=== PATIENT | female | born 1955 | race Caucasian/White ===

== ENCOUNTER 2019-05-14 13:05 | Emergency (ER) | payer OTHER, BC ==
[~2019-05-14] VITALS: Ht 157.5 cm; Wt 58.2 kg
[~2019-05-14 13:05] MED LIST: ASPI-611 PO; ATRNS; ENOX40SY7 SUBCUT; FAMO20TA44 PO; FLUT16SP26 BOTHNARES; LEVO5TAB13 PO; MULT-1085 PO; OASIS TEARS OP; OMEP20CA15 PO; SUCR1ORA2 PO; SUMA25TA35 PO
[2019-05-14 13:12] VITALS: BP 157/86
[2019-05-14] MEDS ORDERED: ondansetron 4mg rapidly disintigrating tab PO ONE (14:50)
[2019-05-14] MEDS ORDERED: morphine 2 MG/ML inj. syringe IM ONE (14:50)
[2019-05-14] MEDS ORDERED: HYDR-3965 PO (16:22)
== END 2019-05-14 17:00 | disposition home or self-care (01) ==
LOC: ER 13:06
DX: S32.10XA Unspecified fracture of sacrum, initial encounter for closed fracture (principal); S43.101A Unspecified dislocation of right acromioclavicular joint, initial encounter; Z98.890 Other specified postprocedural states; Z88.8 Allergy status to other drugs, medicaments and biological substances; Z79.82 Long term (current) use of aspirin; Z79.899 Other long term (current) drug therapy; W18.30XA Fall on same level, unspecified, initial encounter; Y93.89 Activity, other specified; Y92.89 Other specified places as the place of occurrence of the external cause; Y99.9 Unspecified external cause status
CPT/HCPCS: 71045; 72100; 72170; 73050; 96372; 99284; J2270

== ENCOUNTER 2019-06-28 12:52 | Emergency (ER) | payer OTHER, BC ==
[~2019-06-28] VITALS: Ht 157.5 cm; Wt 60.0 kg
[2019-06-28 12:53] VITALS: BP 183/93
[2019-06-28] MEDS ORDERED: AMOX-422 PO (13:50)
[2019-06-28] MEDS ORDERED: FLUC150T5 PO (13:51)
== END 2019-06-28 14:10 | disposition home or self-care (01) ==
LOC: ER 12:53
DX: S60.572A Other superficial bite of hand of left hand, initial encounter (principal); F41.9 Anxiety disorder, unspecified; Z88.8 Allergy status to other drugs, medicaments and biological substances; Z79.899 Other long term (current) drug therapy; Z79.82 Long term (current) use of aspirin; W54.0XXA Bitten by dog, initial encounter; Y93.89 Activity, other specified; Y92.89 Other specified places as the place of occurrence of the external cause; Y99.8 Other external cause status
CPT/HCPCS: 99283

== ENCOUNTER 2019-08-03 11:49 | Emergency (ER) | payer BC, OTHER ==
[~2019-08-03] VITALS: Ht 157.5 cm; Wt 60.0 kg
[~2019-08-03 11:49] MED LIST changes: +FLUC150T5 PO
[2019-08-03] MEDS ORDERED: LIDOcaine 5% patch TP SCH (12:35)
[2019-08-03] MEDS ORDERED: acetaminophen w/codeine (30MG) #3 tablet PO ONE (12:35)
[2019-08-03 13:10] VITALS: BP 116/94
[2019-08-03] MEDS ORDERED: LIDO700A32 TOP (13:20)
[2019-08-03] MEDS ORDERED: IBUP-1984 PO (13:20)
== END 2019-08-03 13:45 | disposition home or self-care (01) ==
LOC: ER 11:50
DX: S22.42XA Multiple fractures of ribs, left side, initial encounter for closed fracture (principal); G43.909 Migraine, unspecified, not intractable, without status migrainosus; F41.9 Anxiety disorder, unspecified; Z98.890 Other specified postprocedural states; Z88.8 Allergy status to other drugs, medicaments and biological substances; Z79.82 Long term (current) use of aspirin; Z79.899 Other long term (current) drug therapy; W19.XXXA Unspecified fall, initial encounter; Y93.89 Activity, other specified; Y92.89 Other specified places as the place of occurrence of the external cause; Y99.8 Other external cause status
CPT/HCPCS: 71101; 99284

== ENCOUNTER 2020-06-09 13:10 | Emergency (ER) | payer OTHER, BC ==
[~2020-06-09] VITALS: Ht 157.5 cm; Wt 38.0 kg
[~2020-06-09 13:10] MED LIST changes: +LIDO700A32 TOP
[2020-06-09] MEDS ORDERED: ketorolac tromethamine 15mg/ml inj. IM ONE (15:15)
[2020-06-09] MEDS ORDERED: iohexol 350MG/ML 100ml bottle IV ONE (17:31)
[2020-06-09 18:12] LABS: ALBUMIN 3.6 G/DL (3.4-5.0); ANION GAP 10 (8-16); BLOOD UREA NITROGEN 13 MG/DL (7-18); BUN/CREATININE RATIO 23.2 (6.6-38.0); CALCIUM 9.1 MG/DL (8.5-10.1); CHLORIDE 103 MMOL/L (99-107); CREATININE 0.56 MG/DL (0.40-0.90); GLUCOSE 91 MG/DL (70-104); POTASSIUM 3.9 MMOL/L (3.5-5.1); SODIUM 141 MMOL/L (135-145); TOTAL CARBON DIOXIDE 27.7 MMOL/L (24-32); eGFR > 90 ML/MIN
[2020-06-09 19:58] VITALS: BP 151/81
== END 2020-06-09 22:02 | disposition short-term general hospital (02) ==
LOC: ER 13:10
DX: S12.9XXA Fracture of neck, unspecified, initial encounter (principal); S49.91XA Unspecified injury of right shoulder and upper arm, initial encounter; G43.909 Migraine, unspecified, not intractable, without status migrainosus; Z87.81 Personal history of (healed) traumatic fracture; Z98.890 Other specified postprocedural states; Z79.82 Long term (current) use of aspirin; Z79.899 Other long term (current) drug therapy; Z88.8 Allergy status to other drugs, medicaments and biological substances; W13.9XXA Fall from, out of or through building, not otherwise specified, initial encounter; Y93.89 Activity, other specified; Y92.89 Other specified places as the place of occurrence of the external cause; Y99.8 Other external cause status
CPT/HCPCS: 36415; 70450; 70496; 70498; 72125; 73030; 80048; 96372; 99285; J1885; Q9967

== ENCOUNTER 2021-06-18 11:04 | Emergency (ER) | payer MEDICARE, BC, OTHER ==
[~2021-06-18] VITALS: Ht 157.5 cm; Wt 52.7 kg
[~2021-06-18 11:04] MED LIST changes: -ASPI-611 PO; -ENOX40SY7 SUBCUT; -FAMO20TA44 PO; -FLUC150T5 PO; -FLUT16SP26 BOTHNARES; -LIDO700A32 TOP; -MULT-1085 PO; -OASIS TEARS OP; -OMEP20CA15 PO; -SUCR1ORA2 PO; -SUMA25TA35 PO
[2021-06-18 11:15] VITALS: BP 119/69
[2021-06-18] MEDS ORDERED: oxyCODONE IR 5mg (immed. release) tablet PO ONE (12:45)
[2021-06-18] MEDS ORDERED: ondansetron 4mg rapidly disintigrating tab PO ONE (12:45)
[2021-06-18] MEDS ORDERED: CYCL-1 PO (14:12)
[2021-06-18] MEDS ORDERED: ONDA4TAB12 PO (14:12)
[2021-06-18] MEDS ORDERED: OXYC-658 PO (14:12)
== END 2021-06-18 14:57 | disposition home or self-care (01) ==
LOC: ER 11:04
DX: S22.31XA Fracture of one rib, right side, initial encounter for closed fracture (principal); R07.89 Other chest pain; G43.909 Migraine, unspecified, not intractable, without status migrainosus; F41.9 Anxiety disorder, unspecified; Z98.890 Other specified postprocedural states; Z88.8 Allergy status to other drugs, medicaments and biological substances; Z79.899 Other long term (current) drug therapy; W01.0XXA Fall on same level from slipping, tripping and stumbling without subsequent striking against object, initial encounter; Y93.89 Activity, other specified; Y92.89 Other specified places as the place of occurrence of the external cause; Y99.8 Other external cause status
CPT/HCPCS: 71101; 99284